=== PATIENT | female | born 1955 | race African-American/Black ===

== ENCOUNTER 2016-09-15 10:05 | Emergency (ER) | payer BC ==
[2016-09-15 10:14] VITALS: BP 141/91
--- NOTE | 2016-09-15 13:31 | UC ---
Sorin Lenz Anna, scribed for Corazon Irizarry DO on 09/15/16 at 1117 . Lower Extremity/Ankle HPI - HPI Summary HPI Summary: Patient is a 61 y/o [place] [facility] [place] with left foot pain that began yesterday morning. At the peak of the pain, the severity of the was described as 7/10. With application of ice, the severity is now 4/10. The pain began in the arch of her foot and has since radiated to the top of her foot and up her leg. The area was erythematous present at the time of encounter but ice just removed. She denies known trauma or injury. Denies fever, chills, abdominal pain, LYN, rash, CP, SOB, coughing, and dysuria. She had bunion surgery nine years ago. She reports wearing flat shoes recently. The pain is exacerbated by movement and walking. The pain is alleviated by rest. She took 2 Advil this morning, which alleviated the pain somewhat. Patient medications were reviewed this visit. - History of Current Complaint Chief Complaint: UCLowerExtremity Stated Complaint: FOOT PAIN Time Seen by Provider: 09/15/16 11:11 Hx Obtained From: Patient ?: No Onset/Duration: Lasting Days, Still Present Severity Initially: Moderate Severity Currently: Moderate Pain Intensity: 4 Pain Scale Used: 0-10 Numeric Aggravating Factor(s): Ambulation Alleviating Factor(s): Ice, OTC Meds - Advil Able to Bear Weight: Yes - Risk Factors Gout Risk Factors: Hypertension - Allergies/Home Medications Allergies/Adverse Reactions: Allergies Allergy/AdvReac Type Severity Reaction Status Date / Time Acetaminophen [From Percocet] Allergy Itching Verified 09/15/16 10:14 Oxycodone [From Percocet] Allergy Itching Verified 09/15/16 10:14 Home Medications: Home Medications Ibuprofen TAB* [Advil TAB*] 400 mg PO QID PRN 09/15/16 [History Confirmed ] PMH/Surg Hx/FS Hx/Imm Hx - Additional Past Medical History Additional PMH: Keloids Endocrine History Of: Denies: Diabetes, Thyroid Disease Cardiovascular History Of: Reports: Hypertension Denies: Cardiac Disorders Respiratory History Of: Denies: COPD, Asthma Cancer History Of: Denies: Breast Cancer - Surgical History Surgical History: Yes Surgery Procedure, Year, and Place: hysterectomy 5 yrs ago cyst removed from both breasts - Family History Known Family History: Positive: Cardiac Disease, Hypertension, Other - Denies FHx of gout Negative: Diabetes Family History: Unknown on Father's side - Social History Lives: With Family Alcohol Use: Rare Substance Use Type: None Smoking Status (MU): Current Every Day Smoker Have You Smoked in the Last Year: Yes Cessation Counseling: Patient Advised to Stop Review of Systems Constitutional: Negative Skin: Other - erythema Eyes: Negative ENT: Negative Respiratory: Negative Cardiovascular: Negative Gastrointestinal: Negative Genitourinary: Negative Motor: Negative Neurovascular: Negative Musculoskeletal: Arthralgia - left foot pain, Myalgia - left foot pain Neurological: Negative Psychological: Negative All Other Systems Reviewed And Are Negative: Yes Physical Exam Triage Information Reviewed: Yes Appearance: Well-Appearing, No Pain Distress, Well-Nourished Vital Signs: Initial Vital Signs Temp 97.2 F 09/15/16 10:11 Pulse 82 09/15/16 10:11 Resp 16 09/15/16 10:11 BP 141/91 09/15/16 10:11 Pulse Ox 100 09/15/16 10:11 Elevated BP noted. Vital Signs Reviewed: Yes Eyes: Positive: Conjunctiva Clear. Negative: Discharge ENT: Positive: Hearing grossly normal. Negative: Muffled/hoarse voice Neck: Positive: Supple, Nontender Respiratory: Positive: Lungs clear, Normal breath sounds, No respiratory distress, No accessory muscle use Cardiovascular: Positive: RRR, No Murmur Musculoskeletal Exam: Other - No tenderness to palpation across top of foot or on any of the joints. Initial redness resolved after foot warmed up from icing. Exquisite ten over plantar fascia. Scars seen from bunionectomy. Patient reports she has keloids. Neurological: Positive: Alert, Muscle Tone Normal Psychological Exam: Normal Psychological: Positive: Age Appropriate Behavior Skin Exam: Other - warm, dry, normal color erythema completely resolved after 5min without ice. Lower Extremity Course/Dx - Differential Dx/Diagnosis Differential Diagnosis/HQI/PQRI: Arthritis, Cellulitis, Gout, Sprain, Other - plantar fasciitis Provider Diagnoses: Plantar Fasciitis. Blood pressure in poor control. Discharge - Discharge Plan Condition: Stable Disposition: HOME Prescriptions: Naproxen TAB* [Naprosyn 250 mg TAB*] 500 mg PO BID #14 tab Patient Education Materials: Plantar Fasciitis Exercises (GEN), Plantar Fasciitis (ED) Referrals: Barbra Morales MD [Primary Care Provider] - (1-2 weeks) Additional Instructions: We have written you a script for physical therapy. YOU WOULD LIKELY BENEFIT FROM OSTEOPATHIC TREATMENT. WE RECOMMEND THAT YOU FIND AN OSTEOPATHIC PHYSICIAN IN YOUR AREA WHO FOCUSES EXCLUSIVELY ON OSTEOPATHIC MANIPULATIVE MEDICINE WITH EXPERTISE IN MYOFACIAL, LYMPHATIC, VISCERAL AND INTEROSSEOUS WORK The documentation as recorded by the Sorin adhikari Anna accurately reflects the service I personally performed and the decisions made by me, Corazon Irizarry DO.
== END 2016-09-15 12:01 | disposition home or self-care (01) ==
LOC: UCEAST 10:05
DX: M72.2 Plantar fascial fibromatosis (principal); I10 Essential (primary) hypertension; F17.210 Nicotine dependence, cigarettes, uncomplicated
CPT/HCPCS: 99213; G0463

== ENCOUNTER 2019-03-03 14:59 | Emergency (ER) | payer BC ==
[2019-03-03 15:31] VITALS: BP 145/94
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
[2019-03-03] MEDS ORDERED: Ibuprofen TAB* 600 MG PO ONE (16:43)
== END 2019-03-03 16:54 | disposition home or self-care (01) ==
LOC: UCEAST 14:59
DX: S62.102A Fracture of unspecified carpal bone, left wrist, initial encounter for closed fracture (principal); I10 Essential (primary) hypertension; F17.200 Nicotine dependence, unspecified, uncomplicated; W01.0XXA Fall on same level from slipping, tripping and stumbling without subsequent striking against object, initial encounter; Y92.9 Unspecified place or not applicable
CPT/HCPCS: 99202; A9270-GY; G0463